=== PATIENT | female | born 1930 | race Caucasian/White ===

== ENCOUNTER 2017-02-21 13:23 | Emergency (ER) | payer MEDICARE, OTHER ==
[~2017-02-21] VITALS: Ht 152.4 cm; Wt 50.8 kg
[~2017-02-21 13:23] MED LIST: ABREVA2 GM TP; ALBUTEROL0.83 MG/ML; ALBUTEROL17 GM INH; AUGMENTIN 875-11 TAB PO; AZMACORT; CADUET; CADUET 5 MG/201 TAB PO; CADUET 5 MG/801 TAB PO; COUMADIN2 M1 PO; COUMADIN3 M1 PO; COUMADIN3 MG; COUMADIN3 MG PO; FORADIL12 MCG; HYDROCODON-ACE1 EAC7 PO; LEVAQUIN750 MG PO; LEVOTHROID112 MCG PO; LEVOTHYROXINE100 MCG PO; MUCINEX1200 MG PO; MUCINEX600 MG PO; NORCO 5/325 TAB1 TAB PO; NORCO 7.5/325 T1 TAB PO; PREDNISONE10 MG PO; PREDNISONE20 M1 PO; SKELAXIN800 MG PO; SYMBICORT; SYMBICORT 16010.2 GM IH; SYNTHROID; SYNTHROID88 MC1 PO; TRAMADOL HCL50 MG PO; TYLENOL325 M2 PO; VANCOMYCIN1 GM/2502 IV; [UNRECOGNIZED DRUG - REMARK]
[2017-02-21 14:49] LABS: PROTHROMBIN TIME 24.5 SECONDS (9.0-13.6)
[2017-02-21] MEDS ORDERED: KEFLEX500 M4 PO (17:00)
[2017-02-21] MEDS ORDERED: LORTAB 10 MG-3473 M1 PO (17:00)
[2017-02-21] MEDS ORDERED: MIRALAX17 G2 PO (17:03)
== END 2017-02-21 17:25 ==
LOC: EDMED 13:23
PROVIDERS: Emergency Medicine
PROC: 0HQ1XZZ Repair Face Skin, External Approach (ICD-10-PCS; principal; 2017-02-21)
DX: S02.641A Fracture of ramus of right mandible, initial encounter for closed fracture (principal); S01.81XA Laceration without foreign body of other part of head, initial encounter; S01.112A Laceration without foreign body of left eyelid and periocular area, initial encounter; S81.012A Laceration without foreign body, left knee, initial encounter; S81.011A Laceration without foreign body, right knee, initial encounter; J45.909 Unspecified asthma, uncomplicated; E03.9 Hypothyroidism, unspecified; Z23 Encounter for immunization; Z79.51 Long term (current) use of inhaled steroids; Z79.01 Long term (current) use of anticoagulants; Z79.890 Hormone replacement therapy; W01.0XXA Fall on same level from slipping, tripping and stumbling without subsequent striking against object, initial encounter; Y92.019 Unspecified place in single-family (private) house as the place of occurrence of the external cause